=== PATIENT | female | born 1940 | race Caucasian/White ===

== ENCOUNTER → 2022-07-16 | Outpatient (CLI) | payer MEDICARE, BC ==
[2022-07-17 15:02] LABS: C DIFFICILE DNA NEGATIVE (Negative)
== END | disposition home or self-care (01) ==
LOC: LAB SHORT 13:17 → LAB 13:17
PROVIDERS: Physician Assistant
DX: R19.7 Diarrhea, unspecified (principal)
CPT/HCPCS: 83993; 87493

== ENCOUNTER → 2022-11-14 | Outpatient (CLI) | payer MEDICARE, BC | END | disposition home or self-care (01) | LOC: LAB SHORT 11:16 | DX: R82.79 Other abnormal findings on microbiological examination of urine (principal) | CPT/HCPCS: 87086 ==

== ENCOUNTER 2023-01-04 02:42 | Emergency (ER) | payer MEDICARE, BC ==
[~2023-01-04] VITALS: Ht 160 cm; Wt 86.2 kg
[2023-01-04] MEDS ORDERED: Hydroxychloroq200 MG PO (03:06)
[2023-01-04] MEDS ORDERED: EUTHYROX150 MC1 PO (03:06)
[2023-01-04] MEDS ORDERED: MIRALAX17 GM PO ×2 (03:06→06:28)
[2023-01-04] MEDS ORDERED: Lisinopril2.5 MG PO (03:07)
[2023-01-04] MEDS ORDERED: HYDCHL25 PO (03:07)
[2023-01-04] MEDS ORDERED: OMEP20ER PO (03:08)
[2023-01-04] MEDS ORDERED: SOLIFENACIN SUC10 MG PO (03:08)
[2023-01-04] MEDS ORDERED: SENN187 PO (03:09)
[2023-01-04] MEDS ORDERED: OXYC10ER PO (03:09)
[2023-01-04] MEDS ORDERED: Acetaminophen325 M1 PO (03:10)
[2023-01-04 03:14] LABS: BASOPHILS ABSOLUTE AUTO 0.02 K/mm3 (0.00-0.23); BASOPHILS PERCENT AUTO 0 % (0-2); EOSINOPHILS ABSOLUTE AUTO 0.11 K/mm3 (0.00-0.68); EOSINOPHILS PERCENT AUTO 1 % (0-6); Hematocrit 24.1 % (33.0-51.0); Hemoglobin 8.1 g/dL (11.5-16.0); IMMATURE GRAN ABSOLUTE AUTO 0.04 K/mm3 (0.00-0.10); IMMATURE GRAN PERCENT AUTO 0 % (0-1); LYMPHOCYTES PERCENT AUTO 19 % (21-46); MONOCYTES ABSOLUTE AUTO 1.13 K/mm3 (0.16-1.47); MONOCYTES PERCENT AUTO 11 % (4-13); Mean Corpuscular HGB 32.4 pg (26.0-34.0); Mean Corpuscular HGB Conc 33.6 g/dL (31.5-36.5); Mean Corpuscular Volume 96 fL (80-100); Mean Platelet Volume 10.2 fL (9.1-12.4); NEUTROPHILS PERCENT AUTO 68 % (41-73); Platelet Count 192 K/mm3 (150-400); RDW Coefficient Variation 14.2 % (11.7-14.2); RDW Standard Deviation 50.1 fL (35.1-46.3)
[2023-01-04 03:27] LABS: Albumin, Blood 2.9 g/dL (3.4-5.0); Albumin/Globulin Ratio 0.8 (0.8-1.8); Bilirubin, Total 0.8 mg/dL (0.1-1.0); Bun/Creatinine Ratio 15.2 (12.0-20.0); Calcium, Blood 8.7 mg/dL (8.5-10.1); Creatinine, Blood 0.72 mg/dL (0.40-1.00); Globulin, Blood 3.5 g/dL (2.2-4.0); Potassium, Blood 3.8 mmol/L (3.5-5.5); Total Protein, Blood 6.4 g/dL (6.4-8.2)
[2023-01-04 04:26] LABS: Source, Urine Clean Catch
[2023-01-04 04:43] LABS: Bilirubin, Urine Neg (Neg); Blood, Urine Neg (Neg); Glucose Qualitative, Urine Neg (Neg); Ketones, Urine Neg (Neg); Leukocyte Esterase, Urine Neg (Neg); Nitrite, Urine Neg (Neg); Protein, Urine Neg (Neg); Specific Gravity, Urine 1.005 (1.003-1.022); Urobilinogen, Urine NORM (Normal)
[2023-01-04 04:44] LABS: Appearance, Urine Clear (Clear); Color, Urine Pale Yellow (P-Yellow)
[2023-01-04] MEDS ORDERED: DICY20 PO (06:28)
== END 2023-01-04 08:30 | disposition home or self-care (01) ==
LOC: ER 02:42
PROVIDERS: Student in an Organized Health Care Education/Training Program
DX: R10.32 Left lower quadrant pain (principal); K59.00 Constipation, unspecified; L76.34 Postprocedural seroma of skin and subcutaneous tissue following other procedure; Y83.8 Other surgical procedures as the cause of abnormal reaction of the patient, or of later complication, without mention of misadventure at the time of the procedure; Z79.890 Hormone replacement therapy; Z79.899 Other long term (current) drug therapy
CPT/HCPCS: 51701; 74177; 80053; 81003; 83690; 85025; 93005; 93010; J1170; J3010; J7030; Q9967

== ENCOUNTER 2023-02-24 06:43 | Emergency (ER) | payer MEDICARE, BC ==
[~2023-02-24] VITALS: Ht 160 cm; Wt 77.1 kg
[~2023-02-24 06:43] MED LIST: Acetaminophen325 M1 PO; DICY20 PO; EUTHYROX150 MC1 PO; HYDCHL25 PO; Hydroxychloroq200 MG PO; Lisinopril2.5 MG PO; MIRALAX17 GM PO; OMEP20ER PO; OXYC10ER PO; SENN187 PO; SOLIFENACIN SUC10 MG PO
[2023-02-24] MEDS ORDERED: CELEXA10 MG PO (07:37)
[2023-02-24 09:30] VITALS: BP 130/59
== END 2023-02-24 09:49 | disposition home or self-care (01) ==
LOC: ER 06:43
DX: G62.9 Polyneuropathy, unspecified (principal); Z79.899 Other long term (current) drug therapy; I10 Essential (primary) hypertension
CPT/HCPCS: 99283

== ENCOUNTER → 2023-07-09 | Outpatient (CLI) | payer MEDICARE, BC ==
[~2023-07-09] MED LIST changes: +CELEXA10 MG PO
== END | disposition home or self-care (01) ==
LOC: LAB 15:08 → LAB SHORT 15:08
DX: N39.0 Urinary tract infection, site not specified (principal)
CPT/HCPCS: 87077; 87086; 87147; 87186

== ENCOUNTER → 2023-07-23 | Outpatient (CLI) | payer MEDICARE, BC ==
[2023-07-24 10:29] LABS: Stool Occult Bld Immuno 1 Negative (NEGATIVE)
== END ==
LOC: LAB 15:43 → LAB SHORT 15:43
PROVIDERS: Physician Assistant
DX: D64.9 Anemia, unspecified (principal)
CPT/HCPCS: 82274

== ENCOUNTER → 2024-03-31 | Outpatient (CLI) | payer MEDICARE, BC | LOC: LAB 19:30 → LAB SHORT 19:30 | DX: N39.0 Urinary tract infection, site not specified (principal); B96.20 Unspecified Escherichia coli [E. coli] as the cause of diseases classified elsewhere; Z16.11 Resistance to penicillins; Z16.19 Resistance to other specified beta lactam antibiotics | CPT/HCPCS: 87077; 87086; 87186 ==

== ENCOUNTER 2024-07-27 16:33 | Emergency (ER) | payer MEDICARE, BC ==
[~2024-07-27] VITALS: Ht 160 cm; Wt 77.1 kg
[2024-07-27 17:06] VITALS: BP 131/62
[2024-07-27 17:44] LABS: BASOPHILS ABSOLUTE AUTO 0.03 K/mm3 (0.00-0.23); BASOPHILS PERCENT AUTO 0 % (0-2); EOSINOPHILS ABSOLUTE AUTO 0.09 K/mm3 (0.00-0.68); EOSINOPHILS PERCENT AUTO 1 % (0-6); Hematocrit 37.5 % (33.0-51.0); Hemoglobin 12.4 g/dL (11.5-16.0); IMMATURE GRAN ABSOLUTE AUTO 0.03 K/mm3 (0.00-0.10); IMMATURE GRAN PERCENT AUTO 0 % (0-1); LYMPHOCYTES ABSOLUTE AUTO 1.15 K/mm3 (0.84-5.20); LYMPHOCYTES PERCENT AUTO 14 % (21-46); MONOCYTES ABSOLUTE AUTO 0.79 K/mm3 (0.16-1.47); MONOCYTES PERCENT AUTO 9 % (4-13); Mean Corpuscular HGB 32.2 pg (26.0-34.0); Mean Corpuscular HGB Conc 33.1 g/dL (31.5-36.5); Mean Corpuscular Volume 97 fL (80-100); NEUTROPHILS ABSOLUTE AUTO 6.38 K/mm3 (1.96-9.15); NEUTROPHILS PERCENT AUTO 75 % (41-73); RDW Coefficient Variation 13.4 % (11.7-14.2); RDW Standard Deviation 47.8 fL (35.1-46.3); Red Blood Cell Count 3.85 M/mm3 (3.80-5.20); White Blood Cell Count 8.47 K/mm3 (4.00-11.30)
[2024-07-27 17:56] LABS: Albumin, Blood 3.6 g/dL (3.4-5.0); Albumin/Globulin Ratio 0.9 (0.8-1.8); Bilirubin, Total 0.8 mg/dL (0.1-1.0); Bun/Creatinine Ratio 22.5 (12.0-20.0); Calcium, Blood 8.6 mg/dL (8.5-10.1); Creatinine, Blood 0.93 mg/dL (0.40-1.00); Globulin, Blood 4.2 g/dL (2.2-4.0); Potassium, Blood 4.3 mmol/L (3.5-5.5); Total Protein, Blood 7.8 g/dL (6.4-8.2)
[2024-07-27 18:01] LABS: Platelet Count 143 K/mm3 (150-400)
[2024-07-27] MEDS ORDERED: Ketorolac Tromethamine 30mg Vial IV ONE (18:15)
== END 2024-07-27 20:16 | disposition home or self-care (01) ==
LOC: ER 16:33
PROVIDERS: Physician Assistant
DX: S39.011A Strain of muscle, fascia and tendon of abdomen, initial encounter (principal); K21.9 Gastro-esophageal reflux disease without esophagitis; X58.XXXA Exposure to other specified factors, initial encounter; Z79.899 Other long term (current) drug therapy; I10 Essential (primary) hypertension
CPT/HCPCS: 74177; 80053; 85025; 96374-59; 99284-25; J1885; Q9967

== ENCOUNTER → 2024-09-07 | Outpatient (CLI) | payer MEDICARE, BC | END | disposition home or self-care (01) | LOC: LAB SHORT 13:46 → LAB 13:46 | DX: N39.0 Urinary tract infection, site not specified (principal) | CPT/HCPCS: 87077; 87086; 87186 ==

== ENCOUNTER 2024-10-04 10:42 | Day surgery (SDC) | payer MEDICARE, BC ==
[~2024-10-04] VITALS: Ht 151 cm; Wt 82.7 kg
[2024-10-04] VITALS (14 sets, daily range): BP systolic 75–130; BP diastolic 46–68
[~2024-10-04 10:42] MED LIST changes: +Acetaminophen 500 MG Tab PO SCH; +Chlorhexidine Mouth Care 15 ML UDC MT SCH; +Lactated Ringer's 1,000 ML IV SCH; +OxyCODONE HCL 10 MG TABCR PO SCH; +TERB250 PO; +Tranexamic Acid 1,000 MG in NS 100 ML IV SCH
[2024-10-04] MEDS ORDERED: CeFAZolin Sodium 2,000 MG in NS 100 ML IV SCH ×2 (11:40→21:24)
[2024-10-04] MEDS ORDERED: Ropivacaine 0.5% HCl/Pf 123.125 MG,EPINEPHrine HCL 0.25 MG,Ketorolac Tromethamine 15 MG... INFIL SCH (11:40)
[2024-10-04] MEDS ORDERED: Clindamycin 900mg in D5W 50ML 50 ML IV SCH (11:40)
--- NOTE | 2024-10-04 12:03 | NUR ---
History, Chart, Medications and Allergies reviewed before start of procedure. Pre-Op teaching done. Pt verbalizes understanding. Patient confirms NPO status and agrees with scheduled surgery. Patient reports completing Chlorhexadine shower X2 prior to admission to hospital. Surgical site prepped with 2% Chlorhexidine cloth wipe. Lungs clear T/O to Auscultation. Patient States Post-Procedure ride home has been arranged.
[2024-10-04] MEDS ORDERED: propofoL 20 ML IV ONE (12:06)
[2024-10-04] MEDS ORDERED: propofoL 100 ML IV ONE (12:25)
[2024-10-04] MEDS ORDERED: ePHEDrine Sulfate 50 MG/ML 1ML Injection ONE (12:35)
[2024-10-04] MEDS ORDERED: propofoL 50 ML IV ONE (14:43)
[2024-10-04] MEDS ORDERED: Dexamethasone Sod Phos 10 MG/ML 1ML VIAL ONE (15:05)
[2024-10-04] MEDS ORDERED: Ondansetron HCl 2 MG / ML 2ML Vial ONE (15:05)
[2024-10-04] MEDS ORDERED: HYDROmorphone HCl/Pf 1MG SYR ONE ×2 (15:38→16:07)
--- NOTE | 2024-10-04 17:22 | NUR ---
ARRIVAL TO UNIT PT ARRIVED FROM PACU AT APPROX 1645. PT [id number] ON 2L NASAL CANULA. DENIES SOB. WILL TITRATE TO ROOM AIR PT TOLERATES. PRINEO DRESSING TO LEFT HIP CDI. SLIGHT BRUISING AROUND INCISION. ABLE TO WIGGLE TOES, CAN FEEL SENSATION BUT STATES IT FEELS "ODD". RECIEVED SPINAL IN THE OR. TOLERATING WATER AND FOOD AT THIS TIME. CALL LIGHT PROVIDED. PT DENIES PAIN BUT WILL CALL IF SHE FEELS PAIN.
[2024-10-04] MEDS ORDERED: HYDROmorphone HCl/Pf 1MG SYR IV PRN (17:45)
[2024-10-04] MEDS ORDERED: DiphenhydrAMINE HCL 25 MG Cap PO PRN (17:45)
[2024-10-04] MEDS ORDERED: FLU VACC TS2024-25(6MOS UP)/PF 45 MCG/0.5 ML SYRINGE IM ONE (17:45)
[2024-10-04] MEDS ORDERED: Cyclobenzaprine HCl 10 MG Tab PO PRN (17:50)
[2024-10-04] MEDS ORDERED: Promethazine HCl 25 MG Tab PO PRN (17:50)
[2024-10-04] MEDS ORDERED: Lactated Ringer's 1,000 ML IV SCH (17:50)
[2024-10-04] MEDS ORDERED: Magnesium Hydroxide Conc 10 ML UDC PO PRN (17:50)
[2024-10-04] MEDS ORDERED: Metoclopramide HCl 5MG / ML 2ML Vial IV PRN (17:50)
[2024-10-04] MEDS ORDERED: Prochlorperazine Edisylate 10 mg Vial IV PRN (17:55)
[2024-10-04] MEDS ORDERED: OxyCODONE HCL 5 MG TAB PO PRN ×2 (17:55→18:00)
[2024-10-04] MEDS ORDERED: Ondansetron HCl 2 MG / ML 2ML Vial IV PRN (17:55)
[2024-10-04] MEDS ORDERED: Bisacodyl 10 MG Supp PR PRN (17:55)
--- NOTE | 2024-10-04 18:35 | NUR ---
SHIFT SUMMARY THIS RN ASSUMED CARE AT APPROX 1730. NO ACUTE CHANGES SINCE THALIA RN's ARRIVAL TO UNIT NOTE. PATIENT REMAINS ALERT AND ORIENTED X4. LETHARGIC, EASILY AROUSABLE WITH VERBAL STIMULI. TITRATED FROM 2L VIA NC TO ROOM AIR, SATs >90%. SOFT BP, SBP 90s-100s AND DBP 50s. MAP >65. LR INFUSING PER EMAR. DRESSING TO LEFT HIP C/D/I. NO CHANGES IN BRUISING AROUND INCISION SITE. MINIMAL SENSATION BUT IS ABLE TO WIGGLE TOES SOME. TOLERATING SMALL BITES OF FOOD. DENIES PAIN. CALL LIGHT IN REACH. WILL CONTINUE TO MONITOR AND REPORT TO ONCOMING RN.
[2024-10-04] MEDS ORDERED: Docusate Sodium 100 MG Cap PO SCH (21:00)
[2024-10-04] MEDS ORDERED: Mupirocin Calcium Oint 1 GM TOP SCH (21:00)
[2024-10-05] MEDS ORDERED: Acetaminophen 500 MG Tab PO SCH
[2024-10-05] MEDS ORDERED: Ketorolac Tromethamine 15mg Vial IV SCH
[2024-10-05 01:20] VITALS: BP 106/58
[2024-10-05 04:22] VITALS: BP 113/84
[2024-10-05 04:55] VITALS: BP 115/49
[2024-10-05 04:59] LABS: BASOPHILS ABSOLUTE AUTO 0.02 K/mm3 (0.00-0.23); BASOPHILS PERCENT AUTO 0 % (0-2); EOSINOPHILS PERCENT AUTO 0 % (0-6); Hematocrit 27.1 % (33.0-51.0); Hemoglobin 8.9 g/dL (11.5-16.0); IMMATURE GRAN ABSOLUTE AUTO 0.04 K/mm3 (0.00-0.10); IMMATURE GRAN PERCENT AUTO 0 % (0-1); LYMPHOCYTES ABSOLUTE AUTO 0.49 K/mm3 (0.84-5.20); LYMPHOCYTES PERCENT AUTO 3 % (21-46); MONOCYTES ABSOLUTE AUTO 1.37 K/mm3 (0.16-1.47); MONOCYTES PERCENT AUTO 10 % (4-13); Mean Corpuscular HGB 33.2 pg (26.0-34.0); Mean Corpuscular HGB Conc 32.8 g/dL (31.5-36.5); Mean Corpuscular Volume 101 fL (80-100); Mean Platelet Volume 11.3 fL (9.1-12.4); NEUTROPHILS ABSOLUTE AUTO 12.44 K/mm3 (1.96-9.15); NEUTROPHILS PERCENT AUTO 87 % (41-73); Platelet Count 129 K/mm3 (150-400); RDW Coefficient Variation 13.7 % (11.7-14.2); RDW Standard Deviation 50.4 fL (35.1-46.3); Red Blood Cell Count 2.68 M/mm3 (3.80-5.20); White Blood Cell Count 14.36 K/mm3 (4.00-11.30)
--- NOTE | 2024-10-05 05:11 | NUR ---
PT CALLED ME INTO ROOM STATING THAT SHE COULD NOT BREATHE. PT REPORTS ACID REFLUX, SHE REPORTS THAT SHE " COUGHED IT UP", BUT THAT IT DID NOT GO BACK INTO HER LUNGS. PT REPORTS PMH OF ACID REFLUX. PT BREATHING INITIALLY APPEARED LABORED AND SHORT. SATS WERE 100% ON RA, AND VITALS STABLE. PT REPORTS THAT SOB RESOLVED AFTER BREIF PERIOD. RESP APPEARED MORE EVEN AND UNLABORED PER MY ASSESSMENT. ORTHO SURGEON INITALLY CALLED, AND I RECEIVED ORDER FOR HOSPITALIST SERVICE CONSULT FOR MEDICAL MANGEMENT. DR. SALCEDO CALLED AND NOTIFIED OF INCIDENT. NO ORDERS AT THIS TIME. HE STATES TO MONITOR FOR NOW.
[2024-10-05] MEDS ORDERED: Omeprazole 20 MG CapCR PO SCH (06:00)
[2024-10-05] MEDS ORDERED: Levothyroxine Sodium 0.15 MG Tab PO SCH (06:00)
--- NOTE | 2024-10-05 06:34 | NUR ---
SHIFT SUMMARY PT POD 0 LEFT TOTAL HIP. PT HAS BEEN UP AMBULATING, BUT IS HESITANT AND GAIT IS SLOW. PT REPORTS FATIGUE AMBULATING A SHORT DISTANCE FROM THE BSC TO THE BED, BUT REPORTS MINIMAL PAIN. PAIN MANAGED WITH SCHEDULED TYELNOL. SURGICAL SITE WNL. PT TOLERATING PO INTAKE, VOIDING. VITALS ARE STABLE. PT REPORTS SOME SOB WITH ACID REFLUX EPISODE. REFLUX MANAGED WITH PRILOSEC. SATS 100% ON RA. SCATTERED WHEEZING HEARD IN BASES, PMH OF RESTRICTIVE LUNG DISEASE. PENDING PT/OT EVAL. PLAN OF CARE REMAINS UNCHANGED. BED IN LOWEST POSITION, CALL LIGHT WITHIN REACH.
[2024-10-05 07:03] LABS: Magnesium, Blood 2.2 mg/dL (1.6-2.4)
[2024-10-05 07:04] LABS: Bun/Creatinine Ratio 22.5 (12.0-20.0); Calcium, Blood 8.2 mg/dL (8.5-10.1); Creatinine, Blood 1.29 mg/dL (0.40-1.00); Potassium, Blood 4.9 mmol/L (3.5-5.5)
[2024-10-05 07:27] VITALS: BP 100/52
[2024-10-05] MEDS ORDERED: Trospium Chloride 20 MG Tab PO SCH (07:30)
[2024-10-05] MEDS ORDERED: Citalopram Hydrobromide 10 MG TAB PO SCH (09:00)
[2024-10-05] MEDS ORDERED: Lisinopril 20 MG Tab PO SCH (09:00)
[2024-10-05] MEDS ORDERED: Hydroxychloroquine Sulfate 200 MG Tab PO SCH (09:00)
[2024-10-05] MEDS ORDERED: Aspirin 81 MG Chew PO SCH (09:00)
--- NOTE | 2024-10-05 13:36 | NUR ---
PT IS CLEARED BY PHYSICAL THERAPY TO DISCHARGE. PT'S FAMILY EXPRESSES CONCERN ABOUT PT'S MOBILITY AND ABILITY TO PERFORM ADL'S. DR GONZALES NOTIFIED AND MESSAGE LEFT. CHARGE NURSE ALSO AWARE. AWAITING FURTHER ORDERS AT THIS TIME.
[2024-10-05 14:45] VITALS: BP 97/43
[2024-10-05] MEDS ORDERED: ACETAMINOPHEN500 MG PO (15:16)
[2024-10-05] MEDS ORDERED: OXAYDO5 M4 PO (15:16)
[2024-10-05] MEDS ORDERED: ASPI81CH PO (15:18)
[2024-10-05] MEDS ORDERED: MUPIROCIN15 GM TOP (15:19)
--- NOTE | 2024-10-05 15:30 | NUR ---
DISCUSSED WITH DR GONZALES ABOUT PT NOT WANTING TO GO HOME TODAY. DR GONZALES PLACED ORDER FOR HOME HEALTH CONSULT. PT NOTIFIED. CARE COORDINATION WAS UNABLE TO GET AHOLD OF PT'S DAUGHTER TO DISCUSS DISCHARGE TODAY. PT AGREEABLE TO DISCHARGE TOMORROW.
--- NOTE | 2024-10-05 17:59 | NUR ---
SHIFT SUMMARY PT WAS IN CHAIR MOST OF THE DAY. PT CLEARED BY PHYSICAL THERAPY. PT WAS ENCOURAGED T/O THE DAY TO STAY IN CHAIR AND BE ACTIVE POSSIBLE. PT R[place] PO INTAKE WELL. PT TAKES MEDS WHOLE WITH APPLESAUCE. FAMILY VISITED TODAY. PLAN TO D/C TOMORROW. DRESSING TO L HIP C/D/I. NO ISSUES DURING SHIFT. CALL LIGHT IN REACH.
[2024-10-05 19:21] VITALS: BP 103/37
[2024-10-06 04:24] VITALS: BP 122/44
--- NOTE | 2024-10-06 04:39 | NUR ---
SHIFT SUMMARY POD 2 L JOSE. NO ACUTE CHANGES OVERNIGHT. VSS. TOLERATING ORALS. VOIDING. AMBULATES USING FWW c GB & SBA. PT REPORTS PAIN TOLERABLE, MEDICATED PER EMAR. PRINEO DRESSING C/D/I c SCANT SEROSANG DRAINAGE. ANTICIPATED DISCHARGE LATER TODAY. CALL LIGHT IN REACH, BED IN LOWEST POSITION, WILL REPORT TO DAY RN.
[2024-10-06 07:11] VITALS: BP 93/36
--- NOTE | 2024-10-06 07:20 | NUR ---
THIS WATER PUMP SERVICER CALLED DAY RN TO BEDSIDE FOR VITALS CHECK.THIS WATER PUMP SERVICER TRIED BLOOD PRESSURE X2 IN EACH ARM. RN NOTIFIED OF RESULTS.PATIENT EDUCATED TO CALL BEFORE GETTING UP.
--- NOTE | 2024-10-06 11:26 | NUR ---
DISCHARGE:PT OK FOR DC, PACKET PRINTED AND PT EDUCATED. IV DC'D WNL, TIP INTACT. PT LEFT UNIT VIA WHEELCHAIR AT ABOUT 1130 WITH SAURAV HANSEN
== END 2024-10-06 11:34 | disposition home health service (06) ==
LOC: SURS 10:42 → ORSCMMR 10:42 → ORD 12:00 → ORSCMMR 14:00 → SURS 16:18 → ORSCMMR 10-06 11:34
PROVIDERS: Orthopaedic Surgery
PROC: 0SRB0JZ Replacement of Left Hip Joint with Synthetic Substitute, Open Approach (ICD-10-PCS; principal; 2024-10-04 12:30)
PROC: 0QP104Z Removal of Internal Fixation Device from Sacrum, Open Approach (ICD-10-PCS; principal; 2024-10-04 12:30)
DX: M16.12 Unilateral primary osteoarthritis, left hip (principal); M87.052 Idiopathic aseptic necrosis of left femur; T84.84XA Pain due to internal orthopedic prosthetic devices, implants and grafts, initial encounter; I10 Essential (primary) hypertension; I73.00 Raynaud's syndrome without gangrene; M35.00 Sjogren syndrome, unspecified; E03.9 Hypothyroidism, unspecified; Z79.899 Other long term (current) drug therapy
CPT/HCPCS: 36415; 72170; 80048; 83735; 85025; 97110; 97161; 97530; A9270; C1713; C1776; J0171; J0690; J0735; J1100; J1171; J1885; J2405; J2704; J2795; J7120

== ENCOUNTER → 2024-11-10 | Outpatient (CLI) | payer MEDICARE, BC ==
[~2024-11-10] MED LIST changes: +ACETAMINOPHEN500 MG PO; +ASPI81CH PO; -Acetaminophen 500 MG Tab PO SCH; -Chlorhexidine Mouth Care 15 ML UDC MT SCH; -Lactated Ringer's 1,000 ML IV SCH; +MUPIROCIN15 GM TOP; +OXAYDO5 M4 PO; -OxyCODONE HCL 10 MG TABCR PO SCH; -Tranexamic Acid 1,000 MG in NS 100 ML IV SCH
== END ==
LOC: LAB 15:46 → LAB SHORT 15:46
DX: R30.0 Dysuria (principal)
CPT/HCPCS: 87086

== ENCOUNTER → 2025-07-31 | Outpatient (CLI) | payer MEDICARE, BC ==
[2025-07-31 12:42] LABS: Microalbumin, Urine Quant. 5.41 mg/L (0.000-20.000); Protein, Urine Quantitative 10.3 mg/dL (0.0-11.9)
== END ==
LOC: LAB SHORT 09:00 → LAB 09:00
PROVIDERS: Internal Medicine Nephrology
DX: N18.2 Chronic kidney disease, stage 2 (mild) (principal); D75.1 Secondary polycythemia; N25.81 Secondary hyperparathyroidism of renal origin; E55.9 Vitamin D deficiency, unspecified; E78.00 Pure hypercholesterolemia, unspecified; R76.9 Abnormal immunological finding in serum, unspecified; R94.5 Abnormal results of liver function studies; R94.6 Abnormal results of thyroid function studies; D51.8 Other vitamin B12 deficiency anemias; D52.8 Other folate deficiency anemias; D50.9 Iron deficiency anemia, unspecified
CPT/HCPCS: 81050; 82043; 82570; 84156